=== PATIENT | female | born 1965 | race Caucasian/White ===

== ENCOUNTER 2016-12-13 12:32 | Emergency (ER) | payer MEDICAID ==
[~2016-12-13] VITALS: Ht 160 cm; Wt 68.0 kg
[~2016-12-13 12:32] MED LIST: PROPRANOLOL HCL20 MG PO
--- NOTE | 2016-12-13 12:44 | Emergency Room Report ---
History of Present Illness Time Seen by MD De Leon Presenting Problem in Triage Pt arrived:Walked Presenting Problem:PT C/O HEADACHE FOR ABOUT A WEEK. 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 N Clinical Suspician of Infection? N Mental Status: 1 - Regular (Normal Baseline) Sepsis Risk:Low Sepsis Risk Have you (or family members/close friends) recently traveled outside the [place]? N If Yes, where/when: Have you had exposure to infectious disease within the past month? N TB? Other? Specify: Source patient, RN notes reviewed, family Exam Limitations no limitations Comment This is a 51-year-old female with a past medical history significant for poorly controlled diabetes mellitus, recent sinus infection for which she is currently taking a Z-Julio who presents to the emergency department for a slowly progressive and worsening migraine over the last week. She has a history of similar migraines. She has tried [id number] decongestants, Afrin, heating pads on the head and none of these have persistently relieved her symptoms. She complains of nasal congestion and drainage, but states that this has been improving with Z-Julio. She has photophobia and states that loud noises or strong smells also make her headache worse. This is typical for her migraines. Headache was not thunderclap in origin. Denies any motor or sensory changes. No recent fevers. Figure stick this morning was in the 370s, but she admits that she has been out of her medications for 3 weeks and just started back yesterday. She denies any dysuria, hematuria. She has had normal bowel movements. No shortness of air or chest pain. ALLERGIES Coded Allergies: cephalexin (Mild, 05/14/16) ciprofloxacin (From CIPRO) (Mild, 05/14/16) sulfamethoxazole (From BACTRIM) (Mild, 05/14/16) trimethoprim (From BACTRIM) (Mild, 05/14/16) Home Medications Reported Medications Propranolol Hcl 60 MG PO DAILY History Medical History General CAD? No Angina: No CT: No Hypertension? No Hyperlipidemia? No CHF? No DVT? No PE? No COPD? No Asthma? No Anemia? No GERD? No Gastric ulcers? No GI Bleed? No Hernia? No Thyroid Problems? No Hypothyroidism? No CVA? No Seizures? No Diabetes? Yes Insulin Dependent: No Insulin Pump: No Home FSBS? Yes Renal Insuffiency? No End Stage Renal Disease? No UTI? No Stones? No BPH? No GB Disease: No Nephritic Syndrome? No Asplenia? No Hepatitis? No Sickle Cell Disease? No Arthritis? No Migraines? Yes Cataracts? No Glaucoma? No MRSA? No HIV? No TB? No Anxiety? No Depression? No Cancer? No More? 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 LMP N/A Social History Smoking Hx Smoker: Never Smoker Tobacco: No Alcohol Alcohol: No Review of Systems All Other Systems Reviewed and Negative Physical Exam Vital Signs Vital Signs Date Time Temp Pulse Resp B/P Pulse O2 O2 Flow FiO2 Ox Delivery Rate 12/13 1307 16 12/13 1236 97.6 85 16 154/96 97 General Appearance normal appearance, WD/WN Eye Exam - bilateral eye normal exam, bilateral eye PERRL, bilateral eye EOMI Ear, Nose, Throat hearing grossly normal, normal pharynx, nasal congestion, clear external auditory canals bilaterally with dull light reflex on tympanic membranes Respiratory Status Yes: chest symmetrical, non tender chest. No: respiratory distress. Lung Sounds bilateral: normal breath sounds, lungs clear. 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 No Results/Orders Laboratory Tests 12/13/16 1250: POC Glucose 252 H Current Medication Orders Sig/Elvia Start time Last Medication Dose Route Stop Time Status Admin Metoclopramide HCl 0 .STK-MED ONE 12/13 1309 DC .ROUTE Dexamethasone Sodium 0 .STK-MED ONE 12/13 1302 DC Phosphate .ROUTE Dexamethasone Sodium 10 MG ONCE ONE 12/13 1300 DC 12/13 Phosphate IV 12/13 1301 1302 Diphenhydramine HCl 50 MG ONCE ONE 12/13 1300 DC 12/13 IV 12/13 1301 1308 Ketorolac 30 MG ONCE ONE 12/13 1300 DC 12/13 Tromethamine IV 12/13 1301 1307 Metoclopramide HCl 10 MG ONCE ONE 12/13 1300 DC 12/13 IVP 12/13 1301 1310 Sodium Chloride 1,000 ML .Q1H1M 12/13 1300 AC 12/13 IV 12/13 1400 1308 Sodium Chloride 10 ML PRN PRN 12/13 1300 AC IV 12/14 1249 Dexamethasone Sodium 0 .STK-MED ONE 12/13 1258 DC Phosphate .ROUTE Ketorolac 0 .STK-MED ONE 12/13 1258 DC Tromethamine .ROUTE Diphenhydramine HCl 0 .STK-MED ONE 12/13 1257 DC .ROUTE Sodium Chloride 1,000 ML .STK-MED ONE 12/13 1255 DC IV Orders Procedure Date/time Status FINGERSTICK BLOOD SUGAR 12/13 1250 Complete Departure Departure Disposition DC Home or Self Care(routine) Clinical Impression Primary Impression: Migraine headache Qualifiers: Migraine type: without aura Status migrainosus presence: with status migrainosus Intractability: not intractable Qualified Code: G43.001 - Migraine without aura, not intractable, with status migrainosus Condition STABLE Additional Instructions Drink plenty of fluids. Follow-up with your primary care provider in one to 2 days if symptoms are not improving. Return to the emergency department if you develop any acute worsening of symptoms, muscle or weakness changes in your extremities, fever, changes in vision. ED Critical Care Critical Care No If Critical Care minutes are documented, the time involved in the performance of seperately reportable procedures was not counted toward critical care time documented. I directly delivered medical care to this critically ill and/or injured patient. Timely evaluation and treatment was necessary to address the significant organ system(s) dysfunction present in this patient. Comments Patient with typical migraine for her, but now prolonged over the course of the week. Symptomology inconsistent with subarachnoid hemorrhage. No fever or focal motor deficits to suggest intracranial abscess or STAVE BOLT EQUALIZER infection. Patient is feeling much better after fluids, migraine cocktail. Her fingerstick is 250, which is elevated but improving now that she is back on her diabetes medications. Discharged home. at 1351
--- NOTE | 2016-12-13 12:44 | Emergency Room Report ---
History of Present Illness Time Seen by MD De Leon Presenting Problem in Triage Pt arrived:Walked Presenting Problem:PT C/O HEADACHE FOR ABOUT A WEEK. 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 N Clinical Suspician of Infection? N Mental Status: 1 - Regular (Normal Baseline) Sepsis Risk:Low Sepsis Risk Have you (or family members/close friends) recently traveled outside the [place]? N If Yes, where/when: Have you had exposure to infectious disease within the past month? N TB? Other? Specify: Source patient, RN notes reviewed, family Exam Limitations no limitations Comment This is a 51-year-old female with a past medical history significant for poorly controlled diabetes mellitus, recent sinus infection for which she is currently taking a Z-Julio who presents to the emergency department for a slowly progressive and worsening migraine over the last week. She has a history of similar migraines. She has tried [id number]-[id number] decongestants, Afrin, heating pads on the head and none of these have persistently relieved her symptoms. She complains of nasal congestion and drainage, but states that this has been improving with Z-Julio. She has photophobia and states that loud noises or strong smells also make her headache worse. This is typical for her migraines. Headache was not thunderclap in origin. Denies any motor or sensory changes. No recent fevers. Figure stick this morning was in the 370s, but she admits that she has been out of her medications for 3 weeks and just started back yesterday. She denies any dysuria, hematuria. She has had normal bowel movements. No shortness of air or chest pain. ALLERGIES Coded Allergies: cephalexin (Mild, 05/14/16) ciprofloxacin (From CIPRO) (Mild, 05/14/16) sulfamethoxazole (From BACTRIM) (Mild, 05/14/16) trimethoprim (From BACTRIM) (Mild, 05/14/16) Home Medications Reported Medications Propranolol Hcl 60 MG PO DAILY History Medical History General CAD? No Angina: No DE: No Hypertension? No Hyperlipidemia? No CHF? No DVT? No PE? No COPD? No Asthma? No Anemia? No GERD? No Gastric ulcers? No GI Bleed? No Hernia? No Thyroid Problems? No Hypothyroidism? No CVA? No Seizures? No Diabetes? Yes Insulin Dependent: No Insulin Pump: No Home FSBS? Yes Renal Insuffiency? No End Stage Renal Disease? No UTI? No Stones? No BPH? No GB Disease: No Nephritic Syndrome? No Asplenia? No Hepatitis? No Sickle Cell Disease? No Arthritis? No Migraines? Yes Cataracts? No Glaucoma? No MRSA? No HIV? No TB? No Anxiety? No Depression? No Cancer? No More? 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 [place] Hx LMP N/A Social History Smoking Hx Smoker: Never Smoker Tobacco: No Alcohol Alcohol: No Review of Systems All Other Systems Reviewed and Negative Physical Exam Vital Signs Vital Signs Date Time Temp Pulse Resp B/P Pulse O2 O2 Flow FiO2 Ox Delivery Rate 12/13 1307 16 12/13 1236 97.6 85 16 154/96 97 General Appearance normal appearance, WD/WN Eye Exam - bilateral eye normal exam, bilateral eye PERRL, bilateral eye EOMI Ear, Nose, Throat hearing grossly normal, normal pharynx, nasal congestion, clear external auditory canals bilaterally with dull light reflex on tympanic membranes Respiratory Status Yes: chest symmetrical, non tender chest. No: respiratory distress. Lung Sounds bilateral: normal breath sounds, lungs clear. 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 No Results/Orders Laboratory Tests 12/13/16 1250: POC Glucose 252 H Current Medication Orders Sig/Elvia Start time Last Medication Dose Route Stop Time Status Admin Metoclopramide HCl 0 .STK-MED ONE 12/13 1309 DC .ROUTE Dexamethasone Sodium 0 .STK-MED ONE 12/13 1302 DC Phosphate .ROUTE Dexamethasone Sodium 10 MG ONCE ONE 12/13 1300 DC 12/13 Phosphate IV 12/13 1301 1302 Diphenhydramine HCl 50 MG ONCE ONE 12/13 1300 DC 12/13 IV 12/13 1301 1308 Ketorolac 30 MG ONCE ONE 12/13 1300 DC 12/13 Tromethamine IV 12/13 1301 1307 Metoclopramide HCl 10 MG ONCE ONE 12/13 1300 DC 12/13 IVP 12/13 1301 1310 Sodium Chloride 1,000 ML .Q1H1M 12/13 1300 AC 12/13 IV 12/13 1400 1308 Sodium Chloride 10 ML PRN PRN 12/13 1300 AC IV 12/14 1249 Dexamethasone Sodium 0 .STK-MED ONE 12/13 1258 DC Phosphate .ROUTE Ketorolac 0 .STK-MED ONE 12/13 1258 DC Tromethamine .ROUTE Diphenhydramine HCl 0 .STK-MED ONE 12/13 1257 DC .ROUTE Sodium Chloride 1,000 ML .STK-MED ONE 12/13 1255 DC IV Orders Procedure Date/time Status FINGERSTICK BLOOD SUGAR 12/13 1250 Complete Departure Departure Disposition DC Home or Self Care(routine) Clinical Impression Primary Impression: Migraine headache Qualifiers: Migraine type: without aura Status migrainosus presence: with status migrainosus Intractability: not intractable Qualified Code: G43.001 - Migraine without aura, not intractable, with status migrainosus Condition STABLE Additional Instructions Drink plenty of fluids. Follow-up with your primary care provider in one to 2 days if symptoms are not improving. Return to the emergency department if you develop any acute worsening of symptoms, muscle or weakness changes in your extremities, fever, changes in vision. ED Critical Care Critical Care No If Critical Care minutes are documented, the time involved in the performance of seperately reportable procedures was not counted toward critical care time documented. I directly delivered medical care to this critically ill and/or injured patient. Timely evaluation and treatment was necessary to address the significant organ system(s) dysfunction present in this patient. Comments Patient with typical migraine for her, but now prolonged over the course of the week. Symptomology inconsistent with subarachnoid hemorrhage. No fever or focal motor deficits to suggest intracranial abscess or NOTCH GRINDER infection. Patient is feeling much better after fluids, migraine cocktail. Her fingerstick is 250, which is elevated but improving now that she is back on her diabetes medications. Discharged home. at 1350
[2016-12-13 14:13] VITALS: BP 132/74
[2017-02-16] MEDS ORDERED: HYDROCORTI30 GM/TUB1 TP (11:10)
[2017-02-16] MEDS ORDERED: AUGMENTIN 875-1 EACH PO (11:10)
== END 2016-12-13 14:14 | disposition home or self-care (01) ==
LOC: ER 12:32
DX: G43.001 Migraine without aura, not intractable, with status migrainosus (principal); E11.9 Type 2 diabetes mellitus without complications